=== PATIENT | female | born 1965 ===

== ENCOUNTER 2021-08-14 23:50 | Emergency (ER) | payer BC ==
[2021-08-15 00:03] VITALS: BP 140/86; PULSE 59
[2021-08-15] MEDS ORDERED: Ketorolac 60 MG/2 ML SDV IM ONE (00:23)
[2021-08-15] MEDS ORDERED: Ketorolac 60 MG/2 ML SDV ONE (00:34)
== END 2021-08-15 00:50 | disposition home or self-care (01) ==
LOC: LB.ED 23:50 → MERGE 23:50 → LB.ED 08-15 00:50
DX: S80.01XA Contusion of right knee, initial encounter (principal); W18.30XA Fall on same level, unspecified, initial encounter
CPT/HCPCS: 96372; 99283; J1885

== ENCOUNTER 2022-01-15 07:36 | Emergency (ER) | payer BC ==
[2022-01-15 07:41] VITALS: BP 156/95; PULSE 58
[2022-01-15] MEDS ORDERED: Doxycycline 100 MG Cap ONE (07:45)
== END 2022-01-15 07:58 | disposition home or self-care (01) ==
LOC: MERGE 07:36 → LB.ED 07:36
DX: S90.465A Insect bite (nonvenomous), left lesser toe(s), initial encounter (principal); Z79.899 Other long term (current) drug therapy; Z88.0 Allergy status to penicillin; Z88.2 Allergy status to sulfonamides; W57.XXXA Bitten or stung by nonvenomous insect and other nonvenomous arthropods, initial encounter
CPT/HCPCS: 99283; A9270; 99281

== ENCOUNTER 2022-01-16 08:03 | Emergency (ER) | payer BC ==
[2022-01-16 08:31] VITALS: BP 145/103; PULSE 97
== END 2022-01-16 08:25 | disposition home or self-care (01) ==
LOC: LB.ED 08:03
DX: L03.116 Cellulitis of left lower limb (principal); Z99.0 Dependence on aspirator
CPT/HCPCS: 99281; 99283

== ENCOUNTER 2022-06-18 13:35 | Emergency (ER) | payer BC ==
[2022-06-18 14:23] VITALS: BP 140/104; PULSE 79
== END 2022-06-18 16:03 | disposition home or self-care (01) ==
LOC: LB.ED 13:35
DX: R21 Rash and other nonspecific skin eruption (principal); E03.9 Hypothyroidism, unspecified; Z88.0 Allergy status to penicillin; Z88.2 Allergy status to sulfonamides; Z79.899 Other long term (current) drug therapy
CPT/HCPCS: 36415; 80053; 85025; 85651; 86140; 99283

== ENCOUNTER 2024-01-11 16:28 | Emergency (ER) | payer OTHER ==
[2024-01-11] MEDS: Ketorolac 30 MG/ML SDV IM ONE (17:10)
[2024-01-11] MEDS: Ketorolac 30 MG/ML SDV ONE (17:34)
[2024-01-11 18:51] VITALS: BP 144/95; PULSE 71
== END 2024-01-11 18:37 | disposition home or self-care (01) ==
LOC: LB.ED 16:28
DX: S06.0X0A Concussion without loss of consciousness, initial encounter (principal); S80.212A Abrasion, left knee, initial encounter; E03.9 Hypothyroidism, unspecified; Z79.899 Other long term (current) drug therapy; Z88.2 Allergy status to sulfonamides; Z88.0 Allergy status to penicillin; V86.95XA Unspecified occupant of 3- or 4- wheeled all-terrain vehicle (ATV) injured in nontraffic accident, initial encounter
CPT/HCPCS: 70450; 73562; 73590; 96372; 99284; J1885